=== PATIENT | male | born 1995 | race Caucasian/White ===

== ENCOUNTER 2018-03-20 00:15 | Emergency (ER) | payer BC ==
[2018-03-20 00:58] LABS: Absolute Lymphocytes (CBC) 2.8 K/uL (0.7-4.9); Absolute Monocytes 1.4 K/uL (0.1-1.3); Absolute Neutrophil 11.8 K/uL (1.8-8.0); Basophils % 0.9 % (0-1.3); Eosinophils % 3.1 % (0-4.4); Hematocrit 44.7 % (39.6-49.0); Lymphocytes % 16.5 % (15.3-44.8); MCH 21.6 pg (27.0-35.0); MCV 68.4 fL (80-100); MPV 8.2 fL (7.6-11.3); Monocytes % 8.5 % (3.3-12.3); RBC Red Blood Cell Count 6.54 M/uL (4.33-5.43)
[2018-03-20] MEDS ORDERED: NA CHLORIDE 0.9% 1,000 ML ONE (00:59)
[2018-03-20 01:07] LABS: Protime INR 1.08
[2018-03-20] MEDS ORDERED: D5 0.45 NS 1,000 ML IV ONE (01:22)
[2018-03-20 01:23] LABS: ALT/SGPT 50 U/L (12-78); AST/SGOT 56 U/L (15-37); Albumin 4.2 g/dL (3.4-5.0); Alkaline Phosphatase 29 U/L (45-117); BUN Blood Urea Nitrogen 14 mg/dL (7-18); Bicarbonate 28 mmol/L (21-32); Bilirubin Direct < 0.1 mg/dL (0-0.2); Bilirubin Total 0.3 mg/dL (0.2-1.0); CKMB Creatine Kinase MB 3.7 ng/mL (0.3-3.6); Creatine Phosphokinase 333 U/L (39-308); Glucose Level 59 mg/dL (74-106); Magnesium 2.2 mg/dL (1.8-2.4); Potassium 4.5 mmol/L (3.5-5.1); Protein, Total 7.5 g/dL (6.4-8.2); Sodium Level 138 mmol/L (136-145)
[2018-03-20 01:24] LABS: Alcohol Serum/Plasma < 3 mg/dL (0-3)
[2018-03-20 01:33] LABS: Thyroid Stimulating Hormone 1.73 uIU/mL (0.36-3.74)
[2018-03-20] MEDS ORDERED: NA CHLORIDE 0.9% 100 ML IV ONE (02:09)
[2018-03-20] MEDS ORDERED: LEVETIRACETAM 500 MG/5 ML VIAL IV ONE (02:09)
[2018-03-20] MEDS ORDERED: GLUCAGON 1 MG/VIAL ONE (02:09)
--- NOTE | 2018-03-20 02:26 | EDPHYS ---
Physician Documentation [facility] Name: John Hernandez Age: 22 yrs Sex: Male : 1995 Arrival Date: 03/20/2018 Time: 00:18 Bed 3 Private MD: ED Physician Cody Mora HPI: 03/20 00:33 This 26 yrs old Male presents to ER via EMS with complaints of altered mental rn status, possible seizure, low blood sugar. 00:33 The patient presents with confusion, decreased responsiveness. Onset: The rn symptoms/episode began/occurred at an unknown time. Possible causes: unknown. Current symptoms: In the emergency department the patient's symptoms are unchanged from the initial presentation. The patient has experienced similar episodes in the past. Significant other reports hasn't been feeling well all day, has been eating a bunch of junk food, no vomiting, no head injury, denies drug use, blood sugar was in 60s, given oral glucose with improvement of glucose, they report patient feeling like sugar was low, felt shaky and sweating. Possible seizures, has hx of seizure disorder.. Historical: - Allergies: 00:53 No Known Allergies; aa1 - Home Meds: 02:27 propranolol 120 mg Oral Cs24 1 cap once daily [Active]; Vyvanse 70 mg oral cap 1 cap aa1 once daily [Active]; Trileptal 300 mg oral tab 1 tab 2 times per day [Active]; Protonix 40 mg Oral TbEC 1 tab 2 times per day [Active]; Keppra 500 mg Oral tab 1 tab 2 times per day [Active]; Zofran (as hydrochloride) 8 mg Oral tab 1 tab 3 times per day [Active]; quetiapine 300 mg oral tab 1 tab once daily [Active]; hydroxyzine pamoate 50 mg Oral cap nightly [Active]; clonidine HCl 0.2 mg Oral tab 1 tab nightly [Active]; fluoxetine 20 mg Oral tab 3 tabs once daily [Active]; suboxone [Active]; - PMHx: 00:53 Anxiety; Depression; Seizures; aa1 - PSHx: 00:53 None; aa1 - Immunization history:: Adult Immunizations unknown. - Social history:: Smoking status: unknown. - Ebola Screening: : No symptoms or risks identified at this time. - Family history:: not pertinent. - Hospitalizations: : No recent hospitalization is reported. ROS: 00:33 Unable to obtain ROS due to altered mental status. rn Exam: 00:33 Constitutional: This is a well developed, well nourished patient who is somnolent but rn easily awaken with speech and tactile stimuli Head/Face: Normocephalic, atraumatic. Eyes: Pupils equal round and reactive to light, extra-ocular motions intact. Lids and lashes normal. Conjunctiva and sclera are non-icteric and not injected. Cornea within normal limits. Periorbital areas with no swelling, redness, or edema. ENT: dry MM Neck: Trachea midline, no thyromegaly or masses palpated, and no cervical lymphadenopathy. Supple, full range of motion without nuchal rigidity, or vertebral point tenderness. No Meningismus. Cardiovascular: Regular rate and rhythm with a normal S1 and S2. No gallops, murmurs, or rubs. Normal PMI, no JVD. No pulse deficits. Respiratory: Lungs have equal breath sounds bilaterally, clear to auscultation and percussion. No rales, rhonchi or wheezes noted. No increased work of breathing, no retractions or nasal flaring. Abdomen/GI: Soft, non-tender, with normal bowel sounds. No distension or tympany. No guarding or rebound. No evidence of tenderness throughout. MS/ Extremity: Pulses equal, no cyanosis. Neurovascular intact. Full, normal range of motion. Equal circumference. Neuro: Somnolent, moves all 4 extremities, opens eyes but not clearly responding to questions. Vital Signs: 00:29 BP 138 / 88; Pulse 80; Resp 17; Pulse Ox 98% on R/A; Weight 90.72 kg; lp1 00:30 Temp 98.6(A); aa1 01:30 BP 123 / 66; Pulse 65; Resp 16; Pulse Ox 99% on R/A; Pain 0/10; aa1 02:30 BP 116 / 94; Pulse 65; Resp 16; Pulse Ox 100% on R/A; Pain 0/10; aa1 03:29 BP 102 / 75; Pulse 64; Resp 14; Temp 98.5; Pulse Ox 100% on R/A; Pain 0/10; aa1 [place] Coma Score: 00:30 Eye Response: to pain(2). Verbal Response: inappropriate words(3). Motor Response: aa1 localizes pain(5). Total: 10. 01:30 Eye Response: to voice(3). Verbal Response: oriented(5). Motor Response: obeys aa1 commands(6). Total: 14. 02:30 Eye Response: spontaneous(4). Verbal Response: oriented(5). Motor Response: obeys aa1 commands(6). Total: 15. 03:29 Eye Response: spontaneous(4). Verbal Response: oriented(5). Motor Response: obeys aa1 commands(6). Total: 15. MDM: 00:18 Patient medically screened. rn 01:53 Differential Diagnosis: electrolyte abnormality, alcohol intoxication, hypoglycemia, rn overdose, volume depletion. Data reviewed: vital signs, nurses notes, lab test result(s), EKG, radiologic studies, and as a result, I will admit patient. Counseling: I had a detailed discussion with the patient and/or guardian regarding: the historical points, exam findings, and any diagnostic results supporting the discharge/admit diagnosis, lab results, radiology results, the need for further work-up and treatment in the hospital. Response to treatment: the patient's symptoms have markedly improved after treatment, and as a result, I will admit patient. Refusal of service: The patient/guardian displays adequate decision making capability and despite a detailed discussion of alternatives, benefits, risks, and consequences refuses: Admission to the hospital for further work-up and treatment. ED course: Pt with hypoglycemic episodes, has been having these episodes since 10 years old. States tends to happen during day when doesn't eat, doesn't happen at night because binges and eats a lot at night, plans to see radio communications mechanician. Doesn't want to stay in hospital, reports took his meds this AM and "crashed". Feels sleepy but otherwise fine. States compliant with seizure meds. Now much more alert, sitting up in bed, will load with keppra given questionable seizures, and significant other here to drive him, plan on getting a room for the night and traveling back to [place]. . 03/20 00:19 Order name: Urine Microscopic Only rn 03/20 00:19 Order name: UDS rn 03/20 00: Order name: Basic Metabolic Panel; Complete Time: 01:42 rn 03/20 00:19 Order name: CBC with Diff; Complete Time: :03/20 00:19 Order name: Ckmb; Complete Time: :03/20 00:19 Order name: CPK; Complete Time: :03/20 00:19 Order name: Magnesium; Complete Time: :03/20 00:19 Order name: Troponin (emerg Dept Use Only); Complete Time: :03/20 00:19 Order name: Acetaminophen; Complete Time: :03/20 00:19 Order name: ETOH Level; Complete Time: :03/20 00:19 Order name: Hepatic Function; Complete Time: :03/20 00:19 Order name: PT-INR; Complete Time: 03/20 00:19 Order name: Ptt, Activated; Complete Time: : rn 03/20 00:19 Order name: Salicylate; Complete Time: : rn 03/20 00:19 Order name: CT Head Brain wo Cont 03/20 00:19 Order name: EKG; Complete Time: 00:20 03/20 00:19 Order name: Cardiac monitoring; Complete Time: 01:03/20 00:19 Order name: EKG - Nurse/Tech; Complete Time: 01:03/20 00:19 Order name: IV Saline Lock; Complete Time: 01:03/20 00:19 Order name: Labs collected and sent; Complete Time: 01:03/20 00:19 Order name: NPO; Complete Time: 01:03/20 00:19 Order name: O2 Per Protocol; Complete Time: 01:03/20 00:19 Order name: O2 Sat Monitoring; Complete Time: 01:03/20 00:19 Order name: Urine Dipstick-Ancillary (obtain specimen); Complete Time: 02:59 03/20 00:37 Order name: TSH; Complete Time: :42 03/20 00:37 Order name: T4 Free; Complete Time: :42 03/20 00:19 Order name: Glucose Level; Complete Time: 01:01 rn Administered Medications: 01:38 Not Given (Other Intervention Used): NS 0.9% 1000 ml IV at 1000 ml once aa1 01:39 Drug: D5-1/2 NS 1000 ml Route: IV; Rate: bolus; Site: right antecubital; aa1 03:28 Follow up: IV Status: Completed infusion aa1 02:10 Drug: Glucagon 1 mg Route: IVP; Site: right antecubital; aa1 03:28 Follow up: Response: No adverse reaction; Blood pressure is elevated aa1 02:15 Drug: Keppra 1000 mg Route: IV; Rate: calculated rate; Site: right antecubital; aa1 02:30 Follow up: IV Status: Completed infusion aa1 Point of Care Testing: Blood Glucose: 00:55 Blood Glucose: 74 mg/dL; aa1 Ranges: Critical Glucose Levels:Adult <50 mg/dl or >400 mg/dl <40 mg/dl or >180 mg/dl Disposition: 03/20/18 02:25 Discharged to Home. Impression: Epilepsy and recurrent seizures, Hypoglycemia, unspecified. - Condition is Stable. - Discharge Instructions: Hypoglycemia, Seizure, Adult. - Medication Reconciliation Form, Thank You Letter, Antibiotic Education, Prescription Opioid Use form. - Follow up: Private Physician; When: As needed; Reason: Recheck today's complaints, Re-evaluation by your physician. - Problem is new. - Symptoms have improved. Signatures: Dispatcher [employer] Liberty Casey RN RN aa1 Cody Mora MD MD rn Pena, Laura RN RN lp1 Corrections: (The following items were deleted from the chart) 03:33 02:25 03/20/2018 02:25 Discharged to Home. Impression: Epilepsy and recurrent seizures; aa1 Hypoglycemia, unspecified. Condition is Stable. Forms are Medication Reconciliation Form, Thank You Letter, Antibiotic Education, Prescription Opioid Use. Follow up: Private Physician; When: As needed; Reason: Recheck today's complaints, Re-evaluation by your physician. Problem is new. Symptoms have improved. rn
--- NOTE | 2018-03-20 02:26 | ER ---
Nurse's Notes [facility] Name: John Hernandez Age: 22 yrs Sex: Male : 1995 Arrival Date: 03/20/2018 Time: 00:18 Bed 3 Private MD: Diagnosis: Epilepsy and recurrent seizures;Hypoglycemia, unspecified Presentation: 03/20 00:26 Presenting complaint: EMS states: Girlfriend called EMS for patient who had probable lp1 seizure, patient unresponsive on arrival of EMS; O2 WNL, Glucose of 64, Glucose given, blood sugar increased to 124; Patient responsive to painful stimuli on arrival to ED. Transition of care: patient was not received from another setting of care. Onset of symptoms was March 20, 2018. Risk Assessment:. Initial Sepsis Screen: Does the patient meet any 2 criteria? No. Patient's initial sepsis screen is negative. Does the patient have a suspected source of infection? No. Patient's initial sepsis screen is negative. Care prior to arrival: Medication(s) given: Glucose given. 00:26 Method Of Arrival: EMS: [facility] lp1 00:26 Acuity: GERRI 2 lp1 Historical: - Allergies: 00:53 No Known Allergies; aa1 - Home Meds: 02:27 propranolol 120 mg Oral Cs24 1 cap once daily [Active]; Vyvanse 70 mg oral cap 1 cap aa1 once daily [Active]; Trileptal 300 mg oral tab 1 tab 2 times per day [Active]; Protonix 40 mg Oral TbEC 1 tab 2 times per day [Active]; Keppra 500 mg Oral tab 1 tab 2 times per day [Active]; Zofran (as hydrochloride) 8 mg Oral tab 1 tab 3 times per day [Active]; quetiapine 300 mg oral tab 1 tab once daily [Active]; hydroxyzine pamoate 50 mg Oral cap nightly [Active]; clonidine HCl 0.2 mg Oral tab 1 tab nightly [Active]; fluoxetine 20 mg Oral tab 3 tabs once daily [Active]; suboxone [Active]; - PMHx: 00:53 Anxiety; Depression; Seizures; aa1 - PSHx: 00:53 None; aa1 - Immunization history:: Adult Immunizations unknown. - Social history:: Smoking status: unknown. - Ebola Screening: : No symptoms or risks identified at this time. - Family history:: not pertinent. - Hospitalizations: : No recent hospitalization is reported. Screenin:30 Abuse screen: Denies threats or abuse. Denies injuries from another. Nutritional lp1 screening: No deficits noted. Tuberculosis screening: No symptoms or risk factors identified. Fall Risk Total Durbin Fall Scale indicates High Risk Score (45 or more points). Fall prevention measures have been instituted. Side Rails Up X 2 Placed Close to Nursing Station. Assessment: 00:20 General: Appears in no apparent distress. comfortable, Behavior is drowsy, listless. aa1 Pain: Unable to use pain scale. Patient is disoriented. FLACC scale score is 0 out of 10. Neuro: Level of Consciousness is listless, Facial symmetry appears normal, Pupils are dilated. Cardiovascular: Heart tones S1 S2 present Rhythm is regular. Respiratory: Airway is patent Respiratory effort is even, unlabored, Respiratory pattern is regular, symmetrical, Breath sounds are clear bilaterally. GI: Abdomen is non-distended, Bowel sounds present X 4 quads. : No deficits noted. EENT: No deficits noted. Derm: Skin is intact, is healthy with good turgor, Skin is pink, warm \\T\\ dry. Musculoskeletal: Capillary refill < 3 seconds. 00:30 Reassessment: On straight cath attempt, patient aroused, states "I don't need a lp1 catheter". 00:45 Reassessment: Pt becoming more alert. Will open eyes and answer questions with minimal aa1 stimulation but quickly falls back to sleep. 01:00 Reassessment: Patient appears in no apparent distress at this time. Pt taken to CT at aa1 this time Patient states symptoms have improved. 01:30 Reassessment: Patient appears in no apparent distress at this time. Patient and/or aa1 family updated on plan of care and expected duration. Pain level reassessed. Patient is alert, oriented x 3, equal unlabored respirations, skin warm/dry/pink. Symptoms greatly improved. Pt remains drowsy but is easily aroused and answers questions appropriately. 02:28 Reassessment: Patient appears in no apparent distress at this time. Patient and/or aa1 family updated on plan of care and expected duration. Pain level reassessed. Patient is alert, oriented x 3, equal unlabored respirations, skin warm/dry/pink. Per ok to d/c pt once IVF and IV Keppra complete. 02:44 Reassessment: IV Keppra complete but pt states he wants to finish the rest of his fluid aa1 bolus prior to d/c. 03:29 Reassessment: Patient appears in no apparent distress at this time. Patient and/or aa1 family updated on plan of care and expected duration. Pain level reassessed. Patient is alert, oriented x 3, equal unlabored respirations, skin warm/dry/pink. D5 bolus complete. Discussed d/c \\T\\ f/u instructions with pt \\T\\ significant other; denies questions or concerns at this time. Vital Signs: 00:29 BP 138 / 88; Pulse 80; Resp 17; Pulse Ox 98% on R/A; Weight 90.72 kg; lp1 00:30 Temp 98.6(A); aa1 01:30 BP 123 / 66; Pulse 65; Resp 16; Pulse Ox 99% on R/A; Pain 0/10; aa1 02:30 BP 116 / 94; Pulse 65; Resp 16; Pulse Ox 100% on R/A; Pain 0/10; aa1 03:29 BP 102 / 75; Pulse 64; Resp 14; Temp 98.5; Pulse Ox 100% on R/A; Pain 0/10; aa1 Irons Coma Score: 00:30 Eye Response: to pain(2). Verbal Response: inappropriate words(3). Motor Response: aa1 localizes pain(5). Total: 10. 01:30 Eye Response: to voice(3). Verbal Response: oriented(5). Motor Response: obeys aa1 commands(6). Total: 14. 02:30 Eye Response: spontaneous(4). Verbal Response: oriented(5). Motor Response: obeys aa1 commands(6). Total: 15. 03:29 Eye Response: spontaneous(4). Verbal Response: oriented(5). Motor Response: obeys aa1 commands(6). Total: 15. ED Course: 00:18 Patient arrived in ED. rn 00:18 Cody Mora MD is Attending Physician. rn 00:29 Triage completed. lp1 00:29 Missed attempt(s): 18 gauge in right antecubital area. Missed attempt(s): 20 gauge in lp1 left wrist. 00:29 Arm band placed on right wrist. lp1 00:30 Missed attempt(s): 22 gauge in left hand. Bleeding controlled, band aid applied, aa1 catheter tip intact. 00:31 Patient has correct armband on for positive identification. Placed in gown. Bed in low lp1 position. Side rails up X2. conveyor monitor on. Pulse ox on. NIBP on. 00:40 Initial lab(s) drawn, by tn, sent to lab. Inserted saline lock: 20 gauge in right aa1 antecubital area, using aseptic technique. Blood collected. 00:51 Liberty Cuevas, RN is Primary Nurse. aa1 00:52 EKG done, by ED staff, reviewed by Cody Mora MD. aa1 01:03 Radiology exam delayed due to Stabilizing patient. Labs being performed. Patient moved kw1 to CT via stretcher. 01:17 CT completed. Patient tolerated procedure well. Patient moved back from CT. kw1 01:18 CT Head Brain wo Cont In Process Unspecified. EDMS 02:55 Urine collected: clean catch specimen, clear. aa1 Administered Medications: 01:38 Not Given (Other Intervention Used): NS 0.9% 1000 ml IV at 1000 ml once aa1 01:39 Drug: D5-1/2 NS 1000 ml Route: IV; Rate: bolus; Site: right antecubital; aa1 03:28 Follow up: IV Status: Completed infusion aa1 02:10 Drug: Glucagon 1 mg Route: IVP; Site: right antecubital; aa1 03:28 Follow up: Response: No adverse reaction; Blood pressure is elevated aa1 02:15 Drug: Keppra 1000 mg Route: IV; Rate: calculated rate; Site: right antecubital; aa1 02:30 Follow up: IV Status: Completed infusion aa1 Point of Care Testing: Blood Glucose: 00:55 Blood Glucose: 74 mg/dL; aa1 Ranges: Outcome: 02:25 Discharge ordered by . rn 03:33 Patient left the ED. aa1 Signatures: Dispatcher [employer] EDMS Liberty Cuevas, RN RN aa1 Cody Mora MD MD rn Pena, Laura, RN RN lp1 Sharon Dickerson kw
[2018-03-20 03:07] LABS: Urine Bacteria <20 /HPF (NONE SEEN); Urine Culture Reflex Order NOT NEEDED; Urine RBC <5 /HPF (NONE SEEN)
[2018-03-20 03:17] LABS: Barbiturates NEGATIVE (NEGATIVE); Benzodiazepines NEGATIVE (NEGATIVE); Cocaine NEGATIVE (NEGATIVE); METHAMPHETAM POSITIVE (NEGATIVE); Methadone NEGATIVE (NEGATIVE); Opiates NEGATIVE (NEGATIVE); Phencyclidine POSITIVE (NEGATIVE); THC Cannibis POSITIVE (NEGATIVE)
--- NOTE | 2018-03-20 09:28 | EKG ---
Test Date: 2018-03-20 Test Time: 00:48:45 Hand Edger: MISAEL MEASUREMENT RESULTS: Intervals: Rate: 49 SC: 118 QRSD: 102 QT: 398 QTc: 359 [place]: P: 6 SC: 118 QRS: 82 T: 57 INTERPRETIVE STATEMENTS: Marked sinus bradycardia Incomplete right bundle branch block Abnormal ECG No previous ECG available for comparison Electronically Signed On 03-20-18 09:27:17 CDT by Jay Thomas
--- NOTE | 2018-03-20 11:04 | RAD REPORT ---
EXAM DESCRIPTION: CT - Head Brain Wo Cont - 03/20/2018 6:42 am CLINICAL HISTORY: Seizure and confusion COMPARISON: None. TECHNIQUE: Computed axial tomography of the head was obtained. IV contrast was not requested. All CT scans are performed using dose optimization technique as appropriate and may include automated exposure control or mA/KV adjustment according to patient size. FINDINGS: An intracranial bleed is not seen . The ventricles are normal in caliber. No extra-axial fluid collection is noted. Fluid within the sinuses/ mastoids is not seen. IMPRESSION: No acute intracranial abnormality is seen. If patient's symptoms persist MRI of the bra in would be recommended.
== END 2018-03-20 03:33 | disposition home or self-care (01) ==
LOC: ER 00:15 → EDBD 00:15 → ER 03:33
DX: E16.2 Hypoglycemia, unspecified (principal); G40.802 Other epilepsy, not intractable, without status epilepticus; F32.9 Major depressive disorder, single episode, unspecified; F41.9 Anxiety disorder, unspecified
CPT/HCPCS: 36415; 70450; 80048; 80076; 80307; 80320; 80329; 81015; 82550; 82553; 82962; 83735; 84439; 84443; 84484; 85025; 85610; 85730; 93005; 96365; 96366; 96375; 99285; J1610; J1953; J7030